=== PATIENT | female | born 1990 | race Caucasian/White ===

== ENCOUNTER 2016-10-02 00:20 | Emergency (ER) | payer OTHER ==
[~2016-10-02] VITALS: Ht 162.5 cm; Wt 72.6 kg
[2016-10-02 00:20] VITALS: BP 124/84
[~2016-10-02 00:20] MED LIST: AMOXICILLIN500 M2 PO; BACTRIM DS 8001 TA1 PO; CIPROFLOXACIN500 MG PO; CLEOCIN HCL300 MG PO; CLINDAMYCIN HC300 MG PO; DIFLUCAN150 MG PO; IBU-6600 MG PO; KEFLEX500 M1 PO; KEFLEX500 MG PO; LEVAQUIN750 MG PO; MOTRIN800 MG PO; NORCO 10-325 T1 EACH PO; ULTRAM50 MG PO; VIBRA-TAB100 MG PO; VIBRAMYCIN100 MG PO; VICODIN 5/500 505 MG PO
[2016-10-02 00:43] LABS: BASO # 0.1 10*3/uL (0.0-0.1); BASO % 0.5 % (0.0-1.0); EOS # 0.1 10*3/uL (0.0-0.4); EOS % 0.6 % (1.0-4.0); HEMATOCRIT 42.4 % (37.0-47.0); HEMOGLOBIN 14.3 g/dl (12.0-16.0); LYMPH # 2.9 10*3/uL (1.3-4.4); LYMPH % 29.5 % (27.0-41.0); MEAN CELL VOLUME 89.5 fl (81.0-99.0); MEAN CORPUSCULAR HGB 30.2 pg (27.0-31.0); MEAN CORPUSCULAR HGB CONC 33.7 g/dl (33.0-37.0); MEAN PLATELET VOLUME 10.2 fl (9.6-12.3); MONO # 0.5 10*3/uL (0.1-1.0); MONO % 5.4 % (3.0-9.0); NEUT # 6.2 10*3/uL (2.3-7.9); NEUT % 63.7 % (47.0-73.0); PLATELET COUNT AUTOMATED 227 10*3/uL (130-400); RED BLOOD COUNT 4.74 10*6/uL (4.10-5.10); RED CELL DISTRI WIDTH 12.6 % (0-14.5); WHITE BLOOD COUNT 9.7 10*3/uL (4.8-10.8)
[2016-10-02 00:57] LABS: ALBUMIN 3.8 gm/dl (3.1-4.5); ALKALINE PHOSPHATASE 97 U/L (45-117); B-hCG (QUALITATIVE) NEGATIVE (NEGATIVE); BILIRUBIN, TOTAL 0.4 mg/dl (0.2-1.0); BUN 11 mg/dl (7-24); CARBON DIOXIDE 26 mmol/L (21-32); CHLORIDE 104 mmol/L (98-107); EST GLOM FILT AFRICAN AMERICAN > 60 ml/min; GLUCOSE 80 mg/dL (65-99); POTASSIUM 3.7 mmol/L (3.5-5.1); SGOT/AST 64 IU/L (3-35); SGPT/ALT 75 U/L (12-78); SODIUM 141 mmol/L (136-145); TOTAL PROTEIN 7.6 gm/dL (6.4-8.2)
[2016-10-02 00:58] LABS: TROPONIN I < 0.015 ng/ml (<0.045)
== END 2016-10-02 02:03 | disposition left against medical advice (07) ==
LOC: ED 00:20
PROVIDERS: Emergency Medicine Emergency Medical Services
DX: T40.1X1A Poisoning by heroin, accidental (unintentional), initial encounter (principal); Y92.9 Unspecified place or not applicable

== ENCOUNTER 2016-11-21 15:27 | Emergency (ER) | payer OTHER ==
[~2016-11-21] VITALS: Wt 68.0 kg
[2016-11-21 16:14] LABS: BASO % 0.5 % (0.0-1.0); EOS # 0.1 10*3/uL (0.0-0.4); EOS % 1.3 % (1.0-4.0); HEMOGLOBIN 12.5 g/dl (12.0-16.0); LYMPH # 2.1 10*3/uL (1.3-4.4); LYMPH % 33.4 % (27.0-41.0); MEAN CELL VOLUME 91.3 fl (81.0-99.0); MEAN CORPUSCULAR HGB CONC 32.9 g/dl (33.0-37.0); MEAN PLATELET VOLUME 10.5 fl (9.6-12.3); MONO # 0.7 10*3/uL (0.1-1.0); MONO % 10.9 % (3.0-9.0); NEUT # 3.3 10*3/uL (2.3-7.9); NEUT % 53.7 % (47.0-73.0); PLATELET COUNT AUTOMATED 174 10*3/uL (130-400); RED BLOOD COUNT 4.16 10*6/uL (4.10-5.10); RED CELL DISTRI WIDTH 12.7 % (0-14.5); WHITE BLOOD COUNT 6.2 10*3/uL (4.8-10.8)
[2016-11-21 16:31] LABS: ALBUMIN 3.3 gm/dl (3.1-4.5); ALKALINE PHOSPHATASE 77 U/L (45-117); BILIRUBIN, TOTAL 0.6 mg/dl (0.2-1.0); BUN 21 mg/dl (7-24); CARBON DIOXIDE 28 mmol/L (21-32); CHLORIDE 105 mmol/L (98-107); EST GLOM FILT AFRICAN AMERICAN > 60 ml/min; GLUCOSE 83 mg/dL (65-99); POTASSIUM 3.8 mmol/L (3.5-5.1); SGOT/AST 89 IU/L (3-35); SGPT/ALT 100 U/L (12-78); SODIUM 142 mmol/L (136-145); TOTAL PROTEIN 6.7 gm/dL (6.4-8.2)
[2016-11-21 16:33] LABS: TROPONIN I < 0.015 ng/ml (<0.045)
[2016-11-21 17:20] VITALS: BP 94/60
== END 2016-11-21 17:28 | disposition home or self-care (01) ==
LOC: ED 15:27
PROVIDERS: Emergency Medicine
DX: T40.1X1A Poisoning by heroin, accidental (unintentional), initial encounter (principal); Y92.9 Unspecified place or not applicable

== ENCOUNTER 2016-11-22 10:55 | Inpatient (IN) | payer OTHER ==
[~2016-11-22] VITALS: Ht 162.5 cm; Wt 68.0 kg
[2016-11-22 11:06] VITALS: BP 109/61
[2016-11-22 11:27] LABS: BASO % 0.4 % (0.0-1.0); EOS # 0.1 10*3/uL (0.0-0.4); EOS % 2.2 % (1.0-4.0); HEMATOCRIT 38.3 % (37.0-47.0); HEMOGLOBIN 12.6 g/dl (12.0-16.0); LYMPH # 1.4 10*3/uL (1.3-4.4); MEAN CELL VOLUME 90.5 fl (81.0-99.0); MEAN CORPUSCULAR HGB 29.8 pg (27.0-31.0); MEAN CORPUSCULAR HGB CONC 32.9 g/dl (33.0-37.0); MEAN PLATELET VOLUME 10.5 fl (9.6-12.3); MONO # 0.3 10*3/uL (0.1-1.0); MONO % 6.9 % (3.0-9.0); NEUT # 3.1 10*3/uL (2.3-7.9); NEUT % 62.3 % (47.0-73.0); PLATELET COUNT AUTOMATED 161 10*3/uL (130-400); RED BLOOD COUNT 4.23 10*6/uL (4.10-5.10); RED CELL DISTRI WIDTH 12.5 % (0-14.5); WHITE BLOOD COUNT 4.9 10*3/uL (4.8-10.8)
[2016-11-22 11:41] LABS: ALBUMIN 3.2 gm/dl (3.1-4.5); ALKALINE PHOSPHATASE 119 U/L (45-117); BILIRUBIN, TOTAL 0.4 mg/dl (0.2-1.0); BUN 16 mg/dl (7-24); CARBON DIOXIDE 26 mmol/L (21-32); CHLORIDE 109 mmol/L (98-107); EST GLOM FILT AFRICAN AMERICAN > 60 ml/min; GLUCOSE 88 mg/dL (65-99); POTASSIUM 3.8 mmol/L (3.5-5.1); SGOT/AST 94 IU/L (3-35); SGPT/ALT 101 U/L (12-78); SODIUM 143 mmol/L (136-145); TOTAL PROTEIN 6.7 gm/dL (6.4-8.2)
[2016-11-22 11:49] LABS: THYROID STIM HORMONE (HS) 0.058 uIU/ml (0.358-4.75)
[2016-11-22 12:00] VITALS: BP 110/61
[2016-11-22 12:00] LABS: BILIRUBIN 1+ (NEGATIVE); BLOOD NEGATIVE (NEGATIVE); CLARITY CLOUDY (CLEAR); COLOR YELLOW (YELLOW); GLUCOSE NEGATIVE (NEGATIVE); KETONE TRACE (NEGATIVE); LEUKO ESTERASE TRACE (NEGATIVE); NITRITE POSITIVE (NEGATIVE); PH 5.5 (5.0-9.0); PROTEIN NEGATIVE (NEGATIVE); SPECIFIC GRAVITY 1.025 (1.005-1.030)
[2016-11-22 12:01] LABS: URINE AMPHETAMINES < 1000 (1000ng/ml); URINE BARBITURATES < 200 (200ng/ml); URINE COCAINE > 300 (300ng/ml)
[2016-11-22 12:07] LABS: BACTERIA 3+; URINE REFLEX COMMENT YES (NO); WBC 21-30 wbc/hpf (0-5)
[2016-11-22 16:00] VITALS: BP 109/62
[2016-11-22 20:00] VITALS: BP 113/72
[2016-11-23] VITALS: BP 113/69
[2016-11-23 04:30] VITALS: BP 120/78
[2016-11-23 07:28] LABS: BASO % 0.4 % (0.0-1.0); EOS # 0.1 10*3/uL (0.0-0.4); EOS % 1.8 % (1.0-4.0); HEMATOCRIT 39.7 % (37.0-47.0); HEMOGLOBIN 12.7 g/dl (12.0-16.0); LYMPH # 2.4 10*3/uL (1.3-4.4); LYMPH % 36.2 % (27.0-41.0); MEAN CELL VOLUME 90.4 fl (81.0-99.0); MEAN CORPUSCULAR HGB 28.9 pg (27.0-31.0); MEAN PLATELET VOLUME 11.5 fl (9.6-12.3); MONO # 0.5 10*3/uL (0.1-1.0); MONO % 6.7 % (3.0-9.0); NEUT # 3.7 10*3/uL (2.3-7.9); NEUT % 54.8 % (47.0-73.0); PLATELET COUNT AUTOMATED 174 10*3/uL (130-400); RED BLOOD COUNT 4.39 10*6/uL (4.10-5.10); RED CELL DISTRI WIDTH 12.5 % (0-14.5); WHITE BLOOD COUNT 6.7 10*3/uL (4.8-10.8)
[2016-11-23 07:45] LABS: ALBUMIN 3.1 gm/dl (3.1-4.5); ALKALINE PHOSPHATASE 117 U/L (45-117); BILIRUBIN, TOTAL 0.3 mg/dl (0.2-1.0); BUN 16 mg/dl (7-24); CARBON DIOXIDE 26 mmol/L (21-32); CHLORIDE 108 mmol/L (98-107); EST GLOM FILT AFRICAN AMERICAN > 60 ml/min; GLUCOSE 110 mg/dL (65-99); SGOT/AST 83 IU/L (3-35); SGPT/ALT 100 U/L (12-78); SODIUM 142 mmol/L (136-145); TOTAL PROTEIN 6.7 gm/dL (6.4-8.2)
[2016-11-23 08:00] VITALS: BP 112/68
[2016-11-23 12:00] VITALS: BP 110/62
[2016-11-23 20:00] VITALS: BP 104/58
[2016-11-24] VITALS: BP 106/56
[2016-11-24 08:00] VITALS: BP 102/48
[2016-11-24 12:00] VITALS: BP 104/50
[2016-11-24 16:00] VITALS: BP 110/50
== END 2016-11-24 17:06 | disposition left against medical advice (07) | DRG 894 ==
LOC: ED 10:55 → EDHOLD 11:23 → 4E 11:37
PROVIDERS: Internal Medicine Nephrology; Nurse Practitioner Family
DX: F11.23 Opioid dependence with withdrawal (principal); E44.0 Moderate protein-calorie malnutrition; E87.8 Other disorders of electrolyte and fluid balance, not elsewhere classified; N39.0 Urinary tract infection, site not specified; Z80.9 Family history of malignant neoplasm, unspecified; F17.210 Nicotine dependence, cigarettes, uncomplicated; F14.10 Cocaine abuse, uncomplicated; R74.8 Abnormal levels of other serum enzymes; E66.3 Overweight; F19.10 Other psychoactive substance abuse, uncomplicated; R74.0 Nonspecific elevation of levels of transaminase and lactic acid dehydrogenase [LDH]; Z68.25 Body mass index [BMI] 25.0-25.9, adult; R00.1 Bradycardia, unspecified; R11.0 Nausea

== ENCOUNTER 2017-07-13 01:29 | Emergency (ER) | payer OTHER ==
[~2017-07-13] VITALS: Wt 63.5 kg
[2017-07-13 01:35] VITALS: BP 125/56
[2017-07-13 02:23] LABS: BASO # 0.1 10*3/uL (0.0-0.1); BASO % 0.5 % (0.0-1.0); EOS # 0.1 10*3/uL (0.0-0.4); EOS % 0.7 % (1.0-4.0); HEMATOCRIT 46.4 % (37.0-47.0); HEMOGLOBIN 15.5 g/dl (12.0-16.0); LYMPH # 2.5 10*3/uL (1.3-4.4); LYMPH % 26.3 % (27.0-41.0); MEAN CELL VOLUME 87.9 fl (81.0-99.0); MEAN CORPUSCULAR HGB 29.4 pg (27.0-31.0); MEAN CORPUSCULAR HGB CONC 33.4 g/dl (33.0-37.0); MEAN PLATELET VOLUME 10.4 fl (9.6-12.3); MONO # 0.9 10*3/uL (0.1-1.0); MONO % 9.5 % (3.0-9.0); NEUT % 62.6 % (47.0-73.0); PLATELET COUNT AUTOMATED 235 10*3/uL (130-400); RED BLOOD COUNT 5.28 10*6/uL (4.10-5.10); RED CELL DISTRI WIDTH 12.7 % (0-14.5); WHITE BLOOD COUNT 9.6 10*3/uL (4.8-10.8)
[2017-07-13 02:34] LABS: BUN 16 mg/dl (7-24); CHLORIDE 107 mmol/L (98-107); CREATININE 0.98 mg/dL (0.55-1.02); POTASSIUM 4.2 mmol/L (3.5-5.1); SODIUM 138 mmol/L (136-145)
[2017-07-13 02:51] LABS: BILIRUBIN NEGATIVE (NEGATIVE); BLOOD 3+ (NEGATIVE); CLARITY CLOUDY (CLEAR); COLOR YELLOW (YELLOW); GLUCOSE NEGATIVE (NEGATIVE); KETONE NEGATIVE (NEGATIVE); LEUKO ESTERASE 2+ (NEGATIVE); NITRITE POSITIVE (NEGATIVE); SPECIFIC GRAVITY 1.025 (1.005-1.030)
[2017-07-13 03:22] LABS: EPITHELIAL CELLS 40-45
[2017-07-13 03:23] LABS: BACTERIA 3+
[2017-07-13 03:24] LABS: WBC 21-30 wbc/hpf (0-5)
[2017-07-13] MEDS ORDERED: SEPTDS PO (03:55)
[2017-07-13] MEDS ORDERED: FLAGYL500 MG PO (03:55)
== END 2017-07-13 04:20 | disposition home or self-care (01) ==
LOC: ED 01:29
PROVIDERS: Emergency Medicine
DX: L03.116 Cellulitis of left lower limb (principal); A59.9 Trichomoniasis, unspecified; N39.0 Urinary tract infection, site not specified; F17.200 Nicotine dependence, unspecified, uncomplicated; F14.10 Cocaine abuse, uncomplicated

== ENCOUNTER 2017-08-29 11:32 | Emergency (ER) | payer OTHER ==
[~2017-08-29] VITALS: Ht 162.5 cm; Wt 74.8 kg
[~2017-08-29 11:32] MED LIST changes: +FLAGYL500 MG PO; +SEPTDS PO
[2017-08-29 11:37] VITALS: BP 140/83
[2017-08-29] MEDS ORDERED: SUBOXONE 8 MG-1 EACH SL (11:41)
[2017-08-29] MEDS ORDERED: PREDNISONE10 MG PO (11:43)
== END 2017-08-29 11:48 | disposition home or self-care (01) ==
LOC: ED 11:32
DX: L30.8 Other specified dermatitis (principal); R03.0 Elevated blood-pressure reading, without diagnosis of hypertension; F17.200 Nicotine dependence, unspecified, uncomplicated; F11.10 Opioid abuse, uncomplicated; F14.10 Cocaine abuse, uncomplicated; E66.3 Overweight; E78.00 Pure hypercholesterolemia, unspecified; Z68.29 Body mass index [BMI] 29.0-29.9, adult; Z79.899 Other long term (current) drug therapy

== ENCOUNTER 2017-09-09 15:03 | Emergency (ER) | payer OTHER ==
[~2017-09-09] VITALS: Ht 162.5 cm; Wt 72.6 kg
[~2017-09-09 15:03] MED LIST changes: +PREDNISONE10 MG PO; +SUBOXONE 8 MG-1 EACH SL
[2017-09-09 15:04] VITALS: BP 107/70
== END 2017-09-09 15:09 | disposition home or self-care (01) ==
LOC: ED 15:03
DX: S61.411A Laceration without foreign body of right hand, initial encounter (principal); F17.200 Nicotine dependence, unspecified, uncomplicated; Z98.890 Other specified postprocedural states; Z79.899 Other long term (current) drug therapy; W45.8XXA Other foreign body or object entering through skin, initial encounter; Y93.89 Activity, other specified; Y92.89 Other specified places as the place of occurrence of the external cause; Y99.9 Unspecified external cause status

== ENCOUNTER 2017-09-17 00:03 | Emergency (ER) | payer OTHER ==
[~2017-09-17] VITALS: Ht 162.5 cm; Wt 72.6 kg
[2017-09-17] MEDS ORDERED: CLINDAMYCIN HC300 MG PO (00:23)
[2017-09-17 00:34] VITALS: BP 127/58
== END 2017-09-17 00:56 | disposition home or self-care (01) ==
LOC: ED 00:03
DX: L03.116 Cellulitis of left lower limb (principal); F17.200 Nicotine dependence, unspecified, uncomplicated; Z98.890 Other specified postprocedural states

== ENCOUNTER 2017-10-11 10:03 | Emergency (ER) | payer OTHER ==
[~2017-10-11] VITALS: Wt 74.8 kg
[2017-10-11 10:07] VITALS: BP 107/60
[2017-10-11] MEDS ORDERED: NAPROSYN500 MG PO ×2 (10:13→10:39)
[2017-10-11] MEDS ORDERED: CEPHALEXIN500 M1 PO ×2 (10:13→10:39)
[2017-10-11] MEDS ORDERED: SEPTDS PO ×2 (10:13→10:39)
== END 2017-10-11 10:24 | disposition home or self-care (01) ==
LOC: ED 10:03
DX: L03.113 Cellulitis of right upper limb (principal); F11.10 Opioid abuse, uncomplicated

== ENCOUNTER 2018-07-08 16:17 | Inpatient (IN) | payer OTHER ==
[~2018-07-08] VITALS: Ht 162.5 cm; Wt 66.9 kg
--- NOTE | ~2018-07-08 | EKG ---
[place], [place] ELECTROCARDIOGRAM REPORT NAME: LAILA SWENSON UNIT #: [id number] ROOM: [facility] DOCTOR: KAT DRAFT REPORT BIRTHDATE: [birth year] [facility] Test Date: 2018-07-08 Test Time: 23:46:20 Pat Name: LAILA SWENSON Department: Room: [facility] 1 Gender: F Account Retention Representative: Selena Brennan : 1990 Requested By: RAMIRO VILLEDA Order Number: [id number] Reading MD: Bethany Eisenbreg MD Measurements Intervals [place] Rate: 77 P: 60 NV: 136 QRS: 85 QRSD: 88 T: 58 QT: 369 QTc: 418 Interpretive Statements Sinus rhythm Borderline Q waves in lateral leads Electronically Signed On 07-10-2018 9:48:47 PST by Bethany Eisenberg MD CM:EKGRPT:ELECTROCARDIOGRAM REPORT [id number] RAMIRO VILLEDA EPIPHANY DRAFT REPORT RAMIRO VILLEDA
[~2018-07-08 16:17] MED LIST changes: +CEPHALEXIN500 M1 PO; +NAPROSYN500 MG PO
[2018-07-08 16:24] VITALS: BP 111/68
[2018-07-08 17:19] LABS: BASO % 0.3 % (0.0-1.0); HEMATOCRIT 50.7 % (37.0-47.0); HEMOGLOBIN 16.3 g/dl (12.0-16.0); LYMPH # 1.6 10*3/uL (1.3-4.4); LYMPH % 11.9 % (27.0-41.0); MEAN CELL VOLUME 87.9 fl (81.0-99.0); MEAN CORPUSCULAR HGB 28.2 pg (27.0-31.0); MEAN CORPUSCULAR HGB CONC 32.1 g/dl (33.0-37.0); MONO # 0.7 10*3/uL (0.1-1.0); MONO % 5.2 % (3.0-9.0); NEUT # 11.1 10*3/uL (2.3-7.9); NEUT % 81.9 % (47.0-73.0); PLATELET COUNT AUTOMATED 289 10*3/uL (130-400); RED BLOOD COUNT 5.77 10*6/uL (4.10-5.10); RED CELL DISTRI WIDTH 12.7 % (0-14.5); WHITE BLOOD COUNT 13.6 10*3/uL (4.8-10.8)
[2018-07-08 17:43] LABS: ALBUMIN 3.7 gm/dl (3.1-4.5); ALKALINE PHOSPHATASE 127 U/L (45-117); BUN 17 mg/dl (7-24); CHLORIDE 104 mmol/L (98-107); CREATININE 1.15 mg/dL (0.55-1.02); LIPASE 80 U/L (73-393); POTASSIUM 3.8 mmol/L (3.5-5.1); SGOT/AST 22 IU/L (3-35); SGPT/ALT 38 U/L (12-78); SODIUM 135 mmol/L (136-145); TOTAL PROTEIN 8.8 gm/dL (6.4-8.2)
[2018-07-08 17:45] LABS: BETA-HCG, QUANT < 1.0 mIU/mL (1-3)
[2018-07-08 19:25] VITALS: BP 104/71
[2018-07-08 20:14] VITALS: BP 120/61
--- NOTE | 2018-07-08 20:14 | NUR ---
A 27, admitted to , under the services of RAJ Perez DO with a diagnosis of SEPSIS, CELLULITIS OF LEFT FOOT. OPIATE DEPENDENCE. Chief complaint is NOT ABLE. Patient arrived via stretcher from ER. Monitor applied. Initial assessment completed. Vital signs taken and recorded. RAJ PEREZ DO notified of admission to the unit. Orders received. See assessment for past medical history, medications and allergies. Patient and/or family oriented to unit. [facility]. visitation policy reviewed. Clothing/patient valuable form completed. JADON CROUCH
--- NOTE | 2018-07-08 21:32 | NUR ---
ATTEMPTED TO RESTART IV BY 2 RN'S 3 ATTEMPTS UNSUCCESSFUL. LAB ALSO UNSUCCESSFUL AND DRAWING BLOOD WORK. NOTIFIED DR. Iesha INMAN STATED IF A UNIT RN COULD COME AND TRY AND THEN CALL HER BACK.
--- NOTE | 2018-07-08 22:15 | NUR ---
UNIT RN ATTEMPTED IV START AND UNSUCCESSFUL. CALLED AND NOTIFIED DR. Iesha INMAN AND ORDERS TO BE OBTAINED.
[2018-07-08 22:22] LABS: BILIRUBIN NEGATIVE (NEGATIVE); BLOOD NEGATIVE (NEGATIVE); CLARITY CLEAR (CLEAR); COLOR YELLOW (YELLOW); GLUCOSE NEGATIVE (NEGATIVE); KETONE TRACE (NEGATIVE); LEUKO ESTERASE NEGATIVE (NEGATIVE); NITRITE NEGATIVE (NEGATIVE)
--- NOTE | 2018-07-08 22:25 | NUR ---
DR. Iesha INMAN HERE AND SPOKE WITH PATIENT AND CONSENT FOR CENTRAL LINE INSERTION SIGNED. PT. AWARE OF PATIENT RIGHTS.
[2018-07-08 22:30] LABS: URINE AMPHETAMINES > 1000 (1000ng/ml); URINE BARBITURATES < 200 (200ng/ml); URINE BENZODIAZEPINES < 200 (200ng/ml); URINE CANNABINOIDS (THC) < 50 (50ng/ml); URINE COCAINE > 300 (300ng/ml); URINE METHADONE < 300 (300ng/ml); URINE OPIATES > 300 (300ng/ml)
[2018-07-08 22:34] LABS: URINE PHENCYCLIDINE < 25 (25ng/ml)
[2018-07-08 22:37] LABS: EPITHELIAL CELLS 25-30
--- NOTE | 2018-07-08 23:30 | NUR ---
DR. Iesha INMAN PERFORMING CENTRAL LINE IN RIGHT SIDE NECK AT THIS TIME.
--- NOTE | 2018-07-08 23:45 | NUR ---
EKG DONE. PORTABLE CHEST X-RAY PERFORMED. 1ST DOSE SUBUTEX GIVEN.REQUIP FOR RESTLESSNESS OF LEGS, MOTRIN AND TYLENOL GIVEN FOR PAIN OF LEFT FOOT.
[2018-07-09] VITALS: BP 120/69
--- NOTE | 2018-07-09 00:57 | NUR ---
UNABLE TO SLEEP. PER PT. CAN NOT TAKE TRAZADONE "IT MAKES ME HAVE RESTLESS LEGS REALLY BAD". VISTARIL AND ROBAXIN GIVEN FOR ANXIETY AND MUSCLE CRAMPS. SEE MAR.
--- NOTE | 2018-07-09 01:31 | NUR ---
CALLED DR. TODD AND DEANNE TO USE [facility] FOR IV FULID/MEDS AND LAB DRAWS. DEANNE TO DRAW LAC ACID, PTROTIME, INR,ETOH LEVELS NOW.
--- NOTE | 2018-07-09 02:01 | NUR ---
C/O NAUSEA. ZOFRAN GIVEN PER ORDER FOR NAUSEA.
--- NOTE | 2018-07-09 02:01 | NUR ---
ROBAXIN AND VISTARIL HELPING WITH MUSCLE ACHES AND ANXIETY.
--- NOTE | 2018-07-09 03:00 | NUR ---
PT. SLEEPING, ZOFRAN EFFECTIVE FOR NAUSEA.
--- NOTE | 2018-07-09 05:12 | NUR ---
LAILA SWENSON [id number] Please refer to the physician's history and physical for past medical history, comorbid conditions, and allergies. Diagnosis: OPIATE DEPENDENCE SEVERE SEPSIS CELLULITIS OF FOOT Ran Score: 20,LOW OR NO RISK WOUND DESCRIPTIONS: Patient left lower extremity red and warm to touch. No open areas noted at this time. No drainage noted at this time. Patient has multiple scab areas noted to bilateral upper extremities. No drainage noted at time of assessment. Patient lips are red and dry at time of assessment. No drainage noted at this time. Patient has multiple ecchymotic areas noted to bilateral upper extremities. Patient has injections sites noted to both sides of neck. Surface the patient is resting on: Isoflex SKIN PREVENTION RECOMMENDATION: 1. Pressure redistribution support surface as appropriate 2. Elevate heels 3. Remove boots/TEDS every shift and reapply 4. Head of bed 30 degrees as tolerated 5. Assess nutrition and hydration 6. Manage moisture 7. Avoid the use of containment devices while in bed 8. Use absorptive products on surfaces limit layers of linens on bed 9. Turn and reposition every 1-2 hours in bed and every 1 hour in chair as tolerated 10. Weight shifts every 15 minutes while up in chair 11. Offloading with pillows or device to keep heels elevated off bed 12. Monitor skin at least every shift 13. Inspect under medical devices twice a day
[2018-07-09 06:23] LABS: BASO # 0.1 10*3/uL (0.0-0.1); BASO % 0.5 % (0.0-1.0); EOS # 0.1 10*3/uL (0.0-0.4); EOS % 0.5 % (1.0-4.0); LYMPH # 2.8 10*3/uL (1.3-4.4); LYMPH % 22.1 % (27.0-41.0); MEAN CELL VOLUME 88.3 fl (81.0-99.0); MEAN CORPUSCULAR HGB CONC 32.9 g/dl (33.0-37.0); MEAN PLATELET VOLUME 10.3 fl (9.6-12.3); MONO # 0.9 10*3/uL (0.1-1.0); MONO % 6.9 % (3.0-9.0); NEUT # 8.9 10*3/uL (2.3-7.9); NEUT % 69.3 % (47.0-73.0); PLATELET COUNT AUTOMATED 266 10*3/uL (130-400); RED BLOOD COUNT 4.89 10*6/uL (4.10-5.10); RED CELL DISTRI WIDTH 12.7 % (0-14.5); WHITE BLOOD COUNT 12.8 10*3/uL (4.8-10.8)
[2018-07-09 06:24] LABS: HEMATOCRIT 43.2 % (37.0-47.0); HEMOGLOBIN 14.2 g/dl (12.0-16.0)
[2018-07-09 06:57] LABS: BUN 17 mg/dl (7-24); CHLORIDE 108 mmol/L (98-107); POTASSIUM 3.9 mmol/L (3.5-5.1); SODIUM 141 mmol/L (136-145)
[2018-07-09 07:00] LABS: CREATININE 0.95 mg/dL (0.55-1.02)
--- NOTE | 2018-07-09 07:30 | NUR ---
PT SLEEPING. RESPS REG/EASY WITH NO DISTRESS NOTED. BEDSIDE REPORT RECEIVED FROM JADON GOMES. MARLON LAMBERT
[2018-07-09 08:00] VITALS: BP 118/69
--- NOTE | 2018-07-09 08:00 | NUR ---
PT SLEEPING. EASILY AWAKENED. ASSESSMENT COMPLETE. PT C/O NAUSEA. ADMINISTERED PO ZOFRAN PER ORDER. WILL MONITOR FOR EFFECTIVENESS.
--- NOTE | 2018-07-09 08:50 | NUR ---
Patient resting quietly with no c/o discomfort. Respirations easy and regular. Vital signs stable. No overt distress. SHANNAN MCKAY
--- NOTE | 2018-07-09 10:29 | NUR ---
Patient is eating 100% of regular diet. Continue with regular diet order and continue to encourage adequate PO intake. No nutrition interventions required at this time. Will monitor. Romana CARDENAS Dieteic Student
[2018-07-09 12:00] VITALS: BP 109/65
--- NOTE | 2018-07-09 14:48 | NUR ---
PATIENT MEETS [facility]. PATIENT IS INTERESTED IN OUTPATIENT COUNSELING FOR SUBOXONE ONCE DISCHARGED. [facility] WILL SCHEDULE THE PATIENT'S INITIAL APPOINTMENT. BRUCE HUMPHREY MS FOUNTAIN HELPER
[2018-07-09 16:00] VITALS: BP 118/64
--- NOTE | 2018-07-09 17:48 | NUR ---
PTS LIPS VERY RED AND SWOLLEN. PER PT REQUEST I CALLED DR VAZQUEZ AND REQUESTED MEDICATION FOR PTS LIPS. I INFORMED HIM THAT PT STATED "I WAS DOING METH AND LICKED AND BIT MY LIPS AND COULD NOT STOP AND NOW THEY ARE SWOLLEN AND HURT REALLY BAD." PER DR VAZQUEZ I CALLED DR HUGHES AND ASKED HIM TO PLEASE COME AND EXAMINE PTS LIPS. HE STATED HE WILL BE UP EDNA.
[2018-07-09 20:00] VITALS: BP 119/73
--- NOTE | 2018-07-09 21:26 | NUR ---
MEDICATED WITH PRN BENTYL, REQUIP, ROBAXIN, MOTRIN AND VISTARIL FOR WITHDRAWAL SYMPTOMS. WILL MONITOR
[2018-07-10] VITALS: BP 124/79; BP 153/67
--- NOTE | 2018-07-10 02:20 | NUR ---
PATIENT RESTING IN BED WITH NO S/S OF DISTRESS. RESPS EASY AND REGULAR. BED IN LOWEST POSITION, CALL LIGHT IN REACH
--- NOTE | 2018-07-10 06:55 | NUR ---
PT SLEEPING. RESPS REG/EASY WITH NO DISTRESS NOTED AT THIS ITME. BEDSIDE REPORT RECEIVED FROM PALOMA GOMES.
[2018-07-10 08:00] VITALS: BP 129/76
--- NOTE | 2018-07-10 09:30 | NUR ---
PT LEAVING AMA. IJ CATHETER REMOVED. PT VERY ANXIOUS AND WOULD NOT ALLOW ME TO HOLD PRESSURE FOR 5 FULL MINUTES. PRESSURE BANDAGE APPLIED AND DIRECTIONS GIVEN TO PT TO HOLD PRESSURE FOR AT LEAST 5 MINUTES.
== END 2018-07-10 09:30 | disposition left against medical advice (07) | DRG 872 ==
LOC: ED 16:17 → 5E 18:33 → EDHOLD 18:33 → 5E 19:19
PROVIDERS: Emergency Medicine; Internal Medicine; ADMIT Internal Medicine
PROC: 02HV33Z Insertion of Infusion Device into Superior Vena Cava, Percutaneous Approach (ICD-10-PCS; principal; 2018-07-09)
PROC: B548ZZA Ultrasonography of Superior Vena Cava, Guidance (ICD-10-PCS; 2018-07-09)
DX: A41.9 Sepsis, unspecified organism (principal); F11.23 Opioid dependence with withdrawal; L03.116 Cellulitis of left lower limb; E87.1 Hypo-osmolality and hyponatremia; E87.2 Acidosis; R65.20 Severe sepsis without septic shock; F11.29 Opioid dependence with unspecified opioid-induced disorder; F17.210 Nicotine dependence, cigarettes, uncomplicated; A59.9 Trichomoniasis, unspecified; Z53.21 Procedure and treatment not carried out due to patient leaving prior to being seen by health care provider; D72.829 Elevated white blood cell count, unspecified; S90.02XA Contusion of left ankle, initial encounter; D64.9 Anemia, unspecified; E66.3 Overweight; W18.39XA Other fall on same level, initial encounter; Y93.89 Activity, other specified; Y92.89 Other specified places as the place of occurrence of the external cause; Z80.9 Family history of malignant neoplasm, unspecified; Y99.8 Other external cause status; Z71.6 Tobacco abuse counseling; Z68.25 Body mass index [BMI] 25.0-25.9, adult

== ENCOUNTER 2019-02-17 17:53 | Emergency (ER) | payer OTHER ==
[~2019-02-17] VITALS: Ht 162.5 cm; Wt 77.1 kg
[2019-02-17 17:54] VITALS: BP 116/55
[2019-02-17 19:13] LABS: BASO % 0.5 % (0.0-1.0); EOS # 0.1 10*3/uL (0.0-0.4); EOS % 1.1 % (1.0-4.0); HEMATOCRIT 41.5 % (37.0-47.0); HEMOGLOBIN 14.2 g/dl (12.0-16.0); LYMPH # 2.2 10*3/uL (1.3-4.4); LYMPH % 26.7 % (27.0-41.0); MEAN CORPUSCULAR HGB 31.1 pg (27.0-31.0); MEAN CORPUSCULAR HGB CONC 34.2 g/dl (33.0-37.0); MEAN PLATELET VOLUME 10.2 fl (9.6-12.3); MONO # 0.8 10*3/uL (0.1-1.0); MONO % 10.1 % (3.0-9.0); NEUT # 5.1 10*3/uL (2.3-7.9); NEUT % 61.4 % (47.0-73.0); PLATELET COUNT AUTOMATED 220 10*3/uL (130-400); RED BLOOD COUNT 4.56 10*6/uL (4.10-5.10); RED CELL DISTRI WIDTH 12.5 % (0-14.5); WHITE BLOOD COUNT 8.2 10*3/uL (4.8-10.8)
[2019-02-17 19:57] LABS: ALBUMIN 3.7 gm/dl (3.1-4.5); ALKALINE PHOSPHATASE 76 U/L (45-117); BUN 6 mg/dl (7-24); CHLORIDE 104 mmol/L (98-107); CREATININE 1.05 mg/dL (0.55-1.02); LIPASE 51 U/L (73-393); POTASSIUM 4.1 mmol/L (3.5-5.1); SGOT/AST 74 IU/L (3-35); SGPT/ALT 78 U/L (12-78); SODIUM 137 mmol/L (136-145); TOTAL PROTEIN 7.4 gm/dL (6.4-8.2)
[2019-02-17 20:08] LABS: ACETAMINOPHEN (TYLENOL) < 5.0 ug/ml (10-30); ETHYL ALCOHOL < 3.0 mg/dl (<3)
== END 2019-02-17 19:55 | disposition left against medical advice (07) ==
LOC: ED 17:53
PROVIDERS: Physician Assistant
DX: F41.9 Anxiety disorder, unspecified (principal); F17.200 Nicotine dependence, unspecified, uncomplicated

== ENCOUNTER 2019-04-23 22:13 | Emergency (ER) | payer OTHER ==
[~2019-04-23] VITALS: Ht 162.5 cm; Wt 68.0 kg
[2019-04-23 22:13] VITALS: BP 140/64
[2019-04-23 23:48] LABS: BILIRUBIN NEGATIVE (NEGATIVE); BLOOD NEGATIVE (NEGATIVE); CLARITY CLOUDY (CLEAR); COLOR YELLOW (YELLOW); GLUCOSE NEGATIVE (NEGATIVE); KETONE NEGATIVE (NEGATIVE); LEUKO ESTERASE NEGATIVE (NEGATIVE); NITRITE NEGATIVE (NEGATIVE); PH 5.5 (5.0-9.0); SPECIFIC GRAVITY >= 1.030 (1.005-1.030); UROBILINOGEN 0.2 E.U./dl (0.2-1.0)
[2019-04-24 00:02] LABS: BACTERIA 2+; CALCIUM OXALATE CRYSTALS 1+; EPITHELIAL CELLS TNTC; RBC 0-2 rbc/hpf (0-2)
== END 2019-04-24 00:38 | disposition home or self-care (01) ==
LOC: ED 22:13
PROVIDERS: Nurse Practitioner Family
DX: Z20.2 Contact with and (suspected) exposure to infections with a predominantly sexual mode of transmission (principal); F17.200 Nicotine dependence, unspecified, uncomplicated

== ENCOUNTER 2020-06-23 11:42 | Emergency (ER) | payer OTHER ==
[~2020-06-23] VITALS: Ht 162.5 cm; Wt 79.4 kg
[2020-06-23 11:45] VITALS: BP 134/82
[2020-06-23 14:25] LABS: BILIRUBIN Negative (Negative); BLOOD Negative (Negative); CLARITY Cloudy (Clear); COLOR Dark Yellow (Yellow); GLUCOSE Negative (Negative); KETONE Trace (Negative); LEUKO ESTERASE Trace (Negative); NITRITE Negative (Negative); PH 6.5 (4.5-8.0); SPECIFIC GRAVITY 1.025 (1.001-1.030)
[2020-06-23 14:40] LABS: BACTERIA 2+; CALCIUM OXALATE CRYSTALS 2+; EPITHELIAL CELLS 51-100
== END 2020-06-23 15:14 | disposition home or self-care (01) ==
LOC: ED 11:42
PROVIDERS: Physician Assistant
DX: T78.40XA Allergy, unspecified, initial encounter (principal); Z88.8 Allergy status to other drugs, medicaments and biological substances; Z88.2 Allergy status to sulfonamides; Z20.2 Contact with and (suspected) exposure to infections with a predominantly sexual mode of transmission; X58.XXXA Exposure to other specified factors, initial encounter

== ENCOUNTER 2020-10-08 23:09 | Emergency (ER) | payer OTHER ==
[~2020-10-08] VITALS: Ht 162.5 cm; Wt 77.1 kg
[2020-10-08 23:30] VITALS: BP 138/75
[2020-10-09] MEDS ORDERED: VIBRAMYCIN100 MG PO (00:20)
== END 2020-10-09 00:37 | disposition home or self-care (01) ==
LOC: ED 23:09
DX: L02.414 Cutaneous abscess of left upper limb (principal); F17.200 Nicotine dependence, unspecified, uncomplicated; Z88.2 Allergy status to sulfonamides; Z98.890 Other specified postprocedural states

== ENCOUNTER 2021-02-26 08:32 | Emergency (ER) | payer OTHER ==
[~2021-02-26] VITALS: Ht 162.5 cm; Wt 79.4 kg
[2021-02-26 09:40] LABS: BILIRUBIN Negative (Negative); BLOOD Negative (Negative); CLARITY Clear (Clear); COLOR Yellow (Yellow); GLUCOSE Negative (Negative); KETONE Negative (Negative); LEUKO ESTERASE Trace (Negative); NITRITE Negative (Negative); PH 5.5 (4.5-8.0)
[2021-02-26 10:00] LABS: BACTERIA TRACE; EPITHELIAL CELLS 16-20; RBC 0-2 rbc/hpf (0-2)
[2021-02-26 10:07] LABS: URINE AMPHETAMINES > 1000 (1000ng/ml); URINE BARBITURATES < 200 (200ng/ml); URINE BENZODIAZEPINES < 200 (200ng/ml); URINE CANNABINOIDS (THC) < 50 (50ng/ml); URINE COCAINE < 300 (300ng/ml); URINE METHADONE < 300 (300ng/ml); URINE OPIATES < 300 (300ng/ml)
[2021-02-26 10:13] LABS: URINE PHENCYCLIDINE < 25 (25ng/ml)
[2021-02-26 10:27] LABS: BASO % 0.3 % (0.0-1.0); EOS # 0.1 10*3/uL (0.0-0.4); EOS % 0.9 % (1.0-4.0); HEMATOCRIT 38.6 % (37.0-47.0); LYMPH # 1.5 10*3/uL (1.3-4.4); LYMPH % 15.6 % (27.0-41.0); MEAN CELL VOLUME 88.5 fl (81.0-99.0); MEAN CORPUSCULAR HGB 28.2 pg (27.0-31.0); MEAN CORPUSCULAR HGB CONC 31.9 g/dl (33.0-37.0); MEAN PLATELET VOLUME 10.7 fl (9.6-12.3); MONO # 0.5 10*3/uL (0.1-1.0); MONO % 4.6 % (3.0-9.0); NEUT # 7.6 10*3/uL (2.3-7.9); NEUT % 78.3 % (47.0-73.0); PLATELET COUNT AUTOMATED 201 10*3/uL (130-400); RED BLOOD COUNT 4.36 10*6/uL (4.10-5.10); RED CELL DISTRI WIDTH 11.7 % (0-14.5); WHITE BLOOD COUNT 9.8 10*3/uL (4.8-10.8)
[2021-02-26 10:42] LABS: ALBUMIN 2.9 gm/dl (3.1-4.5); ALKALINE PHOSPHATASE 93 U/L (45-117); BUN 11 mg/dl (7-24); CHLORIDE 107 mmol/L (98-107); CREATININE 0.73 mg/dL (0.55-1.02); POTASSIUM 3.8 mmol/L (3.5-5.1); SGOT/AST 50 IU/L (3-35); SGPT/ALT 65 U/L (12-78); SODIUM 132 mmol/L (136-145); TOTAL PROTEIN 7.4 gm/dL (6.4-8.2)
[2021-02-26 12:37] VITALS: BP 140/72
== END 2021-02-26 15:00 | disposition short-term general hospital (02) ==
LOC: ED 08:32
PROVIDERS: Emergency Medicine
DX: N61.1 Abscess of the breast and nipple (principal); L03.116 Cellulitis of left lower limb; Z88.1 Allergy status to other antibiotic agents; F17.200 Nicotine dependence, unspecified, uncomplicated

== ENCOUNTER 2022-07-02 05:16 | Emergency (ER) | payer OTHER ==
[~2022-07-02] VITALS: Ht 162.5 cm; Wt 81.6 kg
[2022-07-02 05:26] VITALS: BP 147/91
[2022-07-02] MEDS ORDERED: VIBRAMYCIN100 MG PO (05:37)
== END 2022-07-02 05:40 | disposition home or self-care (01) ==
LOC: ED 05:16
DX: L02.211 Cutaneous abscess of abdominal wall (principal); L02.415 Cutaneous abscess of right lower limb; F17.200 Nicotine dependence, unspecified, uncomplicated; F19.10 Other psychoactive substance abuse, uncomplicated; Z88.2 Allergy status to sulfonamides; Z88.8 Allergy status to other drugs, medicaments and biological substances; Z98.890 Other specified postprocedural states

== ENCOUNTER 2022-08-13 00:10 | Emergency (ER) | payer OTHER ==
[~2022-08-13] VITALS: Ht 162.5 cm; Wt 79.4 kg
[2022-08-13 00:13] VITALS: BP 126/61
== END 2022-08-13 01:05 | disposition left against medical advice (07) ==
LOC: ED 00:10
DX: T40.1X1A Poisoning by heroin, accidental (unintentional), initial encounter (principal); E87.1 Hypo-osmolality and hyponatremia; D64.9 Anemia, unspecified; Z98.890 Other specified postprocedural states; Z88.2 Allergy status to sulfonamides; Z88.8 Allergy status to other drugs, medicaments and biological substances; F19.10 Other psychoactive substance abuse, uncomplicated; F17.200 Nicotine dependence, unspecified, uncomplicated; Y92.89 Other specified places as the place of occurrence of the external cause

== ENCOUNTER 2022-11-22 03:35 | Emergency (ER) | payer OTHER ==
[~2022-11-22] VITALS: Ht 165.1 cm; Wt 86.6 kg
[2022-11-22 03:53] VITALS: BP 130/70
[2022-11-22] MEDS ORDERED: CEPHALEXIN500 M1 PO (04:50)
[2022-11-22] MEDS ORDERED: VIBRAMYCIN100 MG PO (04:50)
== END 2022-11-22 04:52 | disposition home or self-care (01) ==
LOC: ED 03:35
DX: L02.416 Cutaneous abscess of left lower limb (principal); F41.9 Anxiety disorder, unspecified; F17.210 Nicotine dependence, cigarettes, uncomplicated; Z88.2 Allergy status to sulfonamides; Z98.890 Other specified postprocedural states

== ENCOUNTER 2023-03-23 18:39 | Emergency (ER) | payer OTHER | END 2023-03-23 19:36 | disposition left against medical advice (07) | LOC: ED 18:39 | DX: L02.214 Cutaneous abscess of groin (principal); Z88.2 Allergy status to sulfonamides; Z88.8 Allergy status to other drugs, medicaments and biological substances; Z53.21 Procedure and treatment not carried out due to patient leaving prior to being seen by health care provider ==

== ENCOUNTER 2023-03-26 04:06 | Emergency (ER) | payer OTHER ==
[~2023-03-26] VITALS: Ht 162.5 cm; Wt 88.5 kg
[2023-03-26] MEDS ORDERED: VIBRAMYCIN100 MG PO (04:35)
== END 2023-03-26 05:06 | disposition home or self-care (01) ==
LOC: ED 04:06
DX: L02.416 Cutaneous abscess of left lower limb (principal); L02.214 Cutaneous abscess of groin; Z88.2 Allergy status to sulfonamides; Z88.8 Allergy status to other drugs, medicaments and biological substances; Z98.890 Other specified postprocedural states; F17.210 Nicotine dependence, cigarettes, uncomplicated

== ENCOUNTER 2023-06-28 00:02 | Emergency (ER) | payer OTHER ==
[~2023-06-28] VITALS: Wt 90.7 kg
[2023-06-28 00:14] VITALS: BP 137/78
== END 2023-06-28 00:54 | disposition home or self-care (01) ==
LOC: ED 00:02
DX: L02.416 Cutaneous abscess of left lower limb (principal); F17.210 Nicotine dependence, cigarettes, uncomplicated; F19.10 Other psychoactive substance abuse, uncomplicated; Z88.2 Allergy status to sulfonamides; Z88.8 Allergy status to other drugs, medicaments and biological substances; Z98.890 Other specified postprocedural states

== ENCOUNTER 2024-08-18 16:54 | Emergency (ER) | payer MEDICAID ==
[~2024-08-18] VITALS: Ht 167.6 cm; Wt 79.4 kg
[2024-08-18 17:04] VITALS: BP 122/64
[2024-08-18] MEDS ORDERED: PENICILLIN VK500 MG PO (17:16)
== END 2024-08-18 17:42 | disposition home or self-care (01) ==
LOC: ED 16:54
DX: K02.9 Dental caries, unspecified (principal); Z79.899 Other long term (current) drug therapy; F17.200 Nicotine dependence, unspecified, uncomplicated; Z88.1 Allergy status to other antibiotic agents; Z88.2 Allergy status to sulfonamides; Z98.890 Other specified postprocedural states